=== PATIENT | female | born 1995 | race Caucasian/White ===

== ENCOUNTER 2023-10-22 09:45 | Emergency (ER) | payer OTHER ==
[2023-10-22 10:06] VITALS: O2SAT 100
[2023-10-22 10:12] LABS: BASOPHILS % (AUTO) 0.4 %; EOSINOPHILS # (AUTO) 0.1 10^3/uL (0.0-0.7); EOSINOPHILS % (AUTO) 1.6 %; HCT - HEMATOCRIT 42.7 % (37.0-47.0); HGB - HEMOGLOBIN 14.1 g/dL (12.0-16.0); LYMPHOCYTES # (AUTO) 1.3 10^3/uL (1.5-3.5); LYMPHOCYTES % (AUTO) 17.7 %; MEAN CORPUSCULAR HEMOGLOBIN 32.7 pg (27.0-31.0); MEAN CORPUSCULAR VOLUME 99.1 fL (81.0-99.0); MEAN PLATELET VOLUME 11.3 fL (7.9-10.8); MONOCYTES # (AUTO) 0.6 10^3/uL (0.0-1.0); MONOCYTES % (AUTO) 8.4 %; NEUTROPHILS # (AUTO) 5.3 10^3/uL (1.5-6.6); NEUTROPHILS % (AUTO) 71.6 %; PLT - PLATELET COUNT 171 10^3/uL (130-450); RED BLOOD COUNT 4.31 10^6/uL (4.20-5.40); RED CELL DISTRIBUTION WIDTH 12.6 % (12.0-15.0); WHITE BLOOD COUNT 7.4 x10^3/uL (4.8-10.8)
[2023-10-22 10:36] LABS: ALBUMIN 4.3 g/dL (3.2-5.5); ALBUMIN/GLOBULIN RATIO 1.5 (1.0-2.2); BILIRUBIN,TOTAL 0.2 mg/dL (0.2-1.0); CALCIUM 9.1 mg/dL (8.5-10.3); CREATININE 0.7 mg/dL (0.6-1.3); POTASSIUM 4.2 mmol/L (3.5-4.5); TOTAL PROTEIN 7.2 g/dL (6.4-8.9)
[2023-10-22] MEDS ORDERED: KETOROLAC 30 MG/ML VIAL IVP STA (11:29)
[2023-10-22] MEDS ORDERED: SODIUM CHLORIDE 0.9% 1,000 ML IV STA (11:29)
[2023-10-22 11:38] LABS: B. PARAPERTUSSIS- RESP PCR PAN NOT DETECTED; B. PERTUSSIS- RESP PCR PANEL NOT DETECTED; C. PNEUMONIAE- RESP PCR PANEL NOT DETECTED; CORONAVIRUS 229E-RESP PCR NOT DETECTED; CORONAVIRUS HKU1-RESP PCR NOT DETECTED; CORONAVIRUS NL63-RESP PCR NOT DETECTED; CORONAVIRUS OC43-RESP PCR NOT DETECTED; HUMAN METAPNEUMOVIRUS NOT DETECTED; INFLUENZA A- RESP PCR PANEL NOT DETECTED; INFLUENZA B - RESP PCR PANEL NOT DETECTED; M. PNEUMONIAE- RESP PCR PANEL NOT DETECTED; PARAINFLUENZA VIRUS 1 NOT DETECTED; PARAINFLUENZA VIRUS 2 NOT DETECTED; PARAINFLUENZA VIRUS 3 NOT DETECTED; PARAINFLUENZA VIRUS 4 NOT DETECTED; RHINOVIRUS/ENTEROVIRUS DETECTED; RSV- RESP PCR PANEL NOT DETECTED; SARS-CoV-2 -RESP PCR PANEL NOT DETECTED
[2023-10-22 11:50] LABS: HCG UR QUAL NEGATIVE
[2023-10-22 11:57] LABS: BILIRUBIN,URINE NEGATIVE (NEGATIVE); GLUCOSE, URINE (UA) NEGATIVE (NEGATIVE); KETONES,URINE (UA) NEGATIVE (NEGATIVE); LEUKOCYTE ESTERASE, URINE NEGATIVE (NEGATIVE); NITRITE,URINE NEGATIVE (NEGATIVE); OCCULT BLOOD,URINE TRACE-INTA (NEGATIVE); PH,URINE 5.5 PH (5.0-7.5); PROTEIN,URINE NEGATIVE (NEGATIVE); UROBILINOGEN,URINE 0.2 (NORMAL) E.U./dL (NORMAL)
[2023-10-22 12:01] LABS: CLARITY,URINE CLOUDY (CLEAR)
[2023-10-22 12:19] LABS: AMORPHOUS SEDIMENT,UR Moderate /LPF; BACTERIA,URINE Few /HPF (None Seen); RBC,URINE 0-5 /HPF (0-5); SQUAMOUS EPITHELIAL CELL,UR MOD Squamous (<= Few)
--- NOTE | 2023-10-22 12:30 | ED Physician Documentation ---
PD HPI ABD PAIN - Stated complaint Stated Complaint: STOMACH PX, GAR[place] - Chief complaint Chief Complaint: Abd Pain - History obtained from History obtained from: Patient - Additional information Additional information: Patient is a 28 yo F with 1 day history of abdominal pain with loose watery stools. No blood. Reported fever on Wednesday of 101 and yesterday having gassy upper abdominal pain with multiple stools overnight. No vomiting. No CP, cough, SOA. has similar symptoms. Denies concerns for . No recent antibiotic use or travel for patient. Review of Systems Constitutional: reports: Fever Cardiac: denies: Chest pain / pressure Respiratory: denies: Dyspnea GI: reports: Abdominal Pain, Diarrhea. denies: Nausea, Bloody / black stool : reports: Dysuria PD PAST MEDICAL HISTORY - Past Medical History Past Medical History: No - Past Surgical History Past Surgical History: No - Allergies Allergies/Adverse Reactions: Allergies Allergy/AdvReac Type Severity Reaction Status Date / Time No Known Drug Allergies Allergy Verified 10/22/23 09:57 - Social History Does the pt smoke?: No Smoking Status: Never smoker PD ED PE NORMAL - General General: Alert and oriented X 3, No acute distress, Well developed/nourished - HEENT HEENT: Atraumatic, Moist mucous membranes, Pharynx benign - Neck Neck: Supple, no meningeal sign - Cardiac Cardiac: RRR, No murmur, Strong equal pulses - Respiratory Respiratory: No respiratory distress, Clear bilaterally - Abdomen Abdomen: Normal bowel sounds, Soft, Non tender, Non distended - Derm Derm: Warm and dry - Neuro Neuro: Normal speech Results - Vitals Vitals: Vital Signs - 24 hr 10/22/23 10/22/23 10/22/23 09:54 11:57 13:00 Temperature 36.7 C 36.7 C 36.5 C Heart Rate 62 60 60 Respiratory 15 16 16 Rate Blood Pressure 143/83 H 138/80 H 130/86 H O2 Saturation 100 100 100 Oxygen O2 Source Room air - Labs Labs: Laboratory Tests 10/22/23 10/22/23 10/22/23 10:00 10:00 10:03 WBC RBC Hgb Hct MCV MCH MCHC RDW Plt Count MPV Neut # (Auto) Lymph # (Auto) [place] # (Auto) Eos # (Auto) Baso # (Auto) Absolute Nucleated RBC Nucleated RBC % Sodium Potassium Chloride Carbon Dioxide Anion Gap BUN Creatinine Estimated GFR (MDRD) Glucose Calcium Total Bilirubin AST ALT Alkaline Phosphatase Total Protein Albumin Globulin Albumin/Globulin Ratio Lipase Urine Color YELLOW Urine Clarity CLOUDY Urine pH 5.5 Ur Specific [place] 1.025 Urine Protein NEGATIVE Urine Glucose (UA) NEGATIVE Urine Ketones NEGATIVE Urine Occult Blood TRACE-INTA Urine Nitrite NEGATIVE Urine Bilirubin NEGATIVE Urine Urobilinogen 0.2 (NORMAL) Ur Leukocyte Esterase NEGATIVE Urine RBC 0-5 Urine WBC 4-5 Ur Squamous Epith Cells MOD Squamous H Amorphous Sediment Moderate Urine Bacteria Few Ur Microscopic Review INDICATED Urine Culture Comments NOT INDICATED Urine HCG, Qual NEGATIVE Nasal Adenovirus (PCR) NOT DETECTED Nasal B. parapertussis DNA (PCR) NOT DETECTED Nasal Coronavir 229E PCR NOT DETECTED Nasal Coronavir HKU1 PCR NOT DETECTED Nasal Coronavir NL63 PCR NOT DETECTED Nasal Coronavir OC43 PCR NOT DETECTED Nasal Enterovir/Rhinovir PCR DETECTED A Nasal Influenza B PCR NOT DETECTED Nasal Influenza A PCR NOT DETECTED Nasal Parainfluen 1 PCR NOT DETECTED Nasal Parainfluen 2 PCR NOT DETECTED Nasal Parainfluen 3 PCR NOT DETECTED Nasal Parainfluen 4 PCR NOT DETECTED Nasal RSV (PCR) NOT DETECTED Nasal B.pertussis DNA PCR NOT DETECTED Nasal C.pneumoniae (PCR) NOT DETECTED Sami Human Metapneumo PCR NOT DETECTED Nasal M.pneumoniae (PCR) NOT DETECTED Nasal SARS-CoV-2 (PCR) NOT DETECTED 10/22/23 10/22/23 10:07 10:07 WBC 7.4 RBC 4.31 Hgb 14.1 Hct 42.7 MCV 99.1 H MCH 32.7 H MCHC 33.0 RDW 12.6 Plt Count 171 MPV 11.3 H Neut # (Auto) 5.3 Lymph # (Auto) 1.3 L [place] # (Auto) 0.6 Eos # (Auto) 0.1 Baso # (Auto) 0.0 Absolute Nucleated RBC 0.00 Nucleated RBC % 0.0 Sodium 137 Potassium 4.2 Chloride 106 Carbon Dioxide 26 Anion Gap 5.0 L BUN 12 Creatinine 0.7 Estimated GFR (MDRD) 100 Glucose 76 Calcium 9.1 Total Bilirubin 0.2 AST 24 ALT 18 Alkaline Phosphatase 80 Total Protein 7.2 Albumin 4.3 Globulin 2.9 Albumin/Globulin Ratio 1.5 Lipase 22 Urine Color Urine Clarity Urine pH Ur Specific [place] Urine Protein Urine Glucose (UA) Urine Ketones Urine Occult Blood Urine Nitrite Urine Bilirubin Urine Urobilinogen Ur Leukocyte Esterase Urine RBC Urine WBC Ur Squamous Epith Cells Amorphous Sediment Urine Bacteria Ur Microscopic Review Urine Culture Comments Urine HCG, Qual Nasal Adenovirus (PCR) Nasal B. parapertussis DNA (PCR) Nasal Coronavir 229E PCR Nasal Coronavir HKU1 PCR Nasal Coronavir NL63 PCR Nasal Coronavir OC43 PCR Nasal Enterovir/Rhinovir PCR Nasal Influenza B PCR Nasal Influenza A PCR Nasal Parainfluen 1 PCR Nasal Parainfluen 2 PCR Nasal Parainfluen 3 PCR Nasal Parainfluen 4 PCR Nasal RSV (PCR) Nasal B.pertussis DNA PCR Nasal C.pneumoniae (PCR) Sami Human Metapneumo PCR Nasal M.pneumoniae (PCR) Nasal SARS-CoV-2 (PCR) PD Medical Decision Making - ED course Complexity details: reviewed results, re-evaluated patient, d/w patient ED course: Pt with watery stools overnight and gassy abdominal pain. Afebrile here but did have fever earlier in the week. ABdominal exam benign. CBC, chemistries, UA, hcg reviewed and without significant findings. Pt unable to give a stool sample here. Pt feeling better with IV fluids and toradol. Respiratory swab + for enterovirus/rhinovirus. Pt counseled on continued supportive care as well as concerning symptoms to return for. Departure - Departure Disposition: 01 Home, Self Care Clinical Impression: Diarrhea, Enterovirus infection Condition: Stable Instructions: ED Diet Vomiting Diarrhea Comments: Please continue with staying hydrated and I would start with a bland diet. Your labs are overall reassuring. You have tested positive for enterovirus/rhinovirus Which is likely the explanation for your symptoms. However if it anytime you develop any worsening symptoms such as increased abdominal pain, vomiting, continued diarrhea or have any other concerns please return to the emergency department. Forms: PCP List, Activity restrictions Discharge Date/Time: 10/22/23 13:16
[2023-10-22 13:17] VITALS: BP 130/86
== END 2023-10-22 13:16 | disposition home or self-care (01) ==
LOC: ED 09:45
DX: B34.1 Enterovirus infection, unspecified (principal); R19.7 Diarrhea, unspecified; Z11.52 Encounter for screening for COVID-19
CPT/HCPCS: 36415; 80053; 81001; 81003; 81025; 83690; 85025; 87086; 87633; 96374; 99284

== ENCOUNTER 2025-08-02 15:01 | Observation (INO) ==
[2025-08-02] MEDS ORDERED: SODIUM CHLORIDE FLUSH 0.9% 10 ML SYRINGE IVP PRN (16:21)
[2025-08-02] MEDS ORDERED: ONDANSETRON ODT 4 MG TABLET TL PRN (16:21)
[2025-08-02] MEDS: ACETAMINOPHEN 325 MG TABLET PO PRN (16:39)
--- NOTE | 2025-08-02 23:18 | HISTORY & PHYSICAL EXAMINATION ---
Admit History Visit Reason Visit Reason: Other (Elevated bp) : 1 Care: positive [facility] Complications This : positive induced HTN Smoking Status: Never smoker Other Maternal History Other Maternal History: presents with very elevated bps at home. Did not feel well so started checking. 07/31 150/99 15 140/86 before meds 146/90 in pm 08/02 151/95 at 2 am, 155/99, 174/99 went to [facility] and given 200 mg labetolol adn 120/78 10:45 148/98, 153/93, 147/96 200 mg more labetolol and then 139/90, 142/90. somewhat of a headache. otherwise feels pretty well. in [place] and then goes to [place] on deployment. She was going to visit him in 2 weeks. Mom coming up from [facility] to be with her daughter. Admitted this evening to collect 24 hr urine and to watch for severe range bps to make a proper diagnosis off medication. Specific Issues/Plans In the event of an emergency, DOES ACCEPT the administration of blood products : SAB October 2024 G2: Current FOB: Robby Donnelly - Active Duty [place] Deploying July to January. Should be able to come home for her delivery for 2 weeks. 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 Denies current use of alcohol or tobacco, marijuana or other recreational drugs. Reports that she is safe in current relationship. Family Hx:Denies family history of congenital anomalies, Cystic Fibrosis or chromosomal abnormalities Allergies:NKA Medications: PNV, Magnesium, LDASA @ 12 weeks -nulliparous, increased BMI It's a GIRL! Magdalena LMP:01/07/2025 SIRI by LMP: 10/14/2025 U/S: @ 7+2 weeks gestation Final SIRI: 10/14/2025 Pre- weight: 202 BMI: 30.9 Blood type: O+ Antibody screen: Negative CBC: PLT HCT HGB - Not enough of a sample at initial draw. Okay to just repeat in third trimester or sooner if symptoms arrise rubella: Immune VZV: Immune HBsAg: Negative HepC: NR RPR/AB-EIA: NR HIV: NR Flu: COVID: PAP: GC/CT: 03/22/2025 Negative HSV: denies Genetic screening: NIPT- negative AFP: ordered FAS: ordered Placenta: Cord: GAEL: EFW: 50gm GCT: 3 hr GTT: TDAP: Breast Pump: 07/09/2025 3rd trimester H/H PLT 3rd trimester RPR RSV: GBS: EPDS: Delivery plan: contraception OB Visit Log Initial Weight: 202 lb 6.4 oz Date EGA Weight BP Fundal ht Pres HR Movement CTX Edema Cerv Dil Cerv Eff % Sta 03/22/25 10w 4d 204 lb(+1 lb 9.6 oz) 130/72 159 04/17/25 14w 2d 209 lb(+6 lb 9.6 oz) 130/76 166 absent absent absent 05/15/25 18w 2d 216 lb(+13 lb 9.6 oz) 136/78 133 active absent absent 06/01/25 20w 5d 07/09/25 26w 1d 228 lb(+25 lb 9.6 oz) 124/80 26 vtx 145 ac tive absent absent HPI Diagnosis/Indication for NST: Gestational Hypertension Current : Vital Signs Temperature 36.7 C 08/02/25 15:15 Pulse Rate 74 08/02/25 22:29 Respiratory Rate 16 08/02/25 22:29 Blood Pressure 133/86 H 08/02/25 22:29 O2 Saturation 100 08/02/25 22:29 NST Procedure NST Procedure: for of less than 32 weeks gestation. NST tracing contains at least two heart rate accelerations that are at least 10 beats per minute above the baseline rate and lasting at least 10 seconds from onset to return to baseline within a twenty minute period. Results and Plan Findings/Impression: NST is reactive for her gestational age. Plan: admit for observation Meds/Allgy Home Medications Ambulatory Orders Medication Instructions Recorded Confirmed vits no.126-ferrous fum tab PO QDAY 10/09/24 07/09/25 28 mg iron-folic acid 800 mcg tablet (Classic ) aspirin 81 mg tablet,delayed 81 mg PO QDAY 05/15/25 release (Adult Aspirin Regimen) magnesium PO 05/15/25 07/09/25 omeprazole magnesium [Prilosec OTC] PO 07/09/25 labetalol 100 mg tablet 100 mg PO BID #60 tabs 08/01 Allergies Allergies Allergy/AdvReac Type Severity Reaction Status Date / Time No Known Drug Allergies Allergy Verified 07/09/25 09:58 PFSH Active Problems All Active Problems (Updated 08/02/25 @ 23:30 by Krystle Barbour MD) 29 weeks gestation of (Acute) Gestational hypertension without significant proteinuria during in third trimester, antepartum (Acute 08/01/25) Hepatic steatosis (Acute) Gallbladder anomaly (Acute) Medical History Medical History (Updated 08/02/25 @ 23:30 by Krystle Barbour MD) Hyperlipidemia Family history of thyroid disease Social History Social History (Updated 07/09/25 @ 13:24 by Alexandra Montero [facility]) Smoking Status: Never smoker Second hand tobacco smoke exposure: No Do you dip or chew tobacco?: No Do you vape?: No Living arrangement: At home Living Condition: With spouse/s.o. 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 no n/v. overall feels pretty well. walking in halls. Physical Abdominal Exam Vital Signs: Temp Pulse Resp BP Pulse Ox 36.7 C 74 16 133/86 H 100 08/02/25 15:15 08/02/25 22:29 08/02/25 22:29 08/02/25 22:29 08/02/25 22:29 Contraction Frequency (min/apart): none Uterine Resting Tone: positive Soft Plan for Labor Plan For Labor I expect patient to be DC'd or transferred within 96 hours.: Yes Plan for Labor: hopefully she will be able to go home late tomorrow or Wednesday after full assessment of where her bps are and her 24 hr urine. Conclusion/Plan Problem List (1) Gestational hypertension without significant proteinuria during in third trimester, antepartum: (2) 29 weeks gestation of : Plan Observe bps for 24 hrs or so. collect 24 hour urine started at 7 pm. watch for severe range bps. NST bid. If bps are in severe range, will consult MFM and possibly transfer. If no severe range bps will restart on labetolol and send home. Lab Results Lab results reviewed: Yes Other Lab Results: labs were done early this am and ok. will repeat tomorrow am. last US 06/04 so will order for am to check for growth restriction.
[2025-08-02] MEDS: CALCIUM CARBONATE CHEW 500 MG TABLET PO SCH (23:55)
[2025-08-03] MEDS: SODIUM CHLORIDE FLUSH 0.9% 10 ML SYRINGE IVP SCH (01:13)
[2025-08-03 07:29] LABS: HCT - HEMATOCRIT 40.0 % (37.0-47.0); HGB - HEMOGLOBIN 13.5 g/dL (12.0-16.0); MEAN PLATELET VOLUME 12.6 fL (7.9-10.8); PLT - PLATELET COUNT 155.0 10^3/uL (130-450); RED CELL DISTRIBUTION WIDTH 12.7 % (12.0-15.0)
[2025-08-03 07:42] LABS: ALT ALANINE AMINOTRANSFERASE 13.0 IU/L (10-60); AST ASPARTATE AMINOTRANSFERASE 15.0 IU/L (10-42); BUN - BLOOD UREA NITROGEN 7.0 mg/dL (6-20); CARBON DIOXIDE - CO2 24.0 mmol/L (21-32); CREATININE 0.5 mg/dL (0.6-1.3); GFR - MDRD 146.0 (>89)
--- NOTE | 2025-08-03 09:12 | PROVIDER PROGRESS NOTE ---
HPI Current : Vital Signs Temperature 97.9 F 08/03/25 07:25 Pulse Rate 72 08/03/25 07:25 Respiratory Rate 16 08/03/25 07:25 Blood Pressure 131/90 H 08/03/25 07:25 O2 Saturation 98 08/03/25 07:25 Procedures Service Date of procedure: 08/02/25 Plan Plan: Date of encounter: 08/02/2025 Time of encounter: 0322 am S: Bessie presents to [facility] with c/o elevated home blood pressure 150/95 and worsening headache. She reports headache is 5/10 on a pain scale. She denies visual disturbances, RUQ or epigastric pain. She denies vaginal bleeding, leakage of fluid or contractions. She reports +FM. O: NST reactive: FHR baseline 130s, moderate variability, + accels, no decels No contractions appreciated via tocometry 200mg PO labetalol administered now 1000mg PO tylenol administered now -Headache resolved. Labs: Plt 141 (previously 153) Hgb/Hct 12.4/38.1 Creatinine 0.6 AST/ALT 15/14 Pro/cr ratio: 0.1 A: 29yo @ 29.3wks gestation Gestational hypertension in third trimester Thrombocytopenia, third trimester NST reactive P: Pt released home with precautions. Consultation with physician tomorrow morning. Reviewed warning s/sx and when to present. Pt verbalized understanding and agrees to above plan. She denies further questions or concerns at this time.
[2025-08-03 12:07] VITALS: TEMP 98.2; O2SAT 99
--- NOTE | 2025-08-03 13:38 | Discharge Summary ---
"Discharge Summary Admit Date: 08/02/25 Discharge Date: 08/03/25 Discharging Provider: Dr. Patti Talavera Primary Care Provider: BRIDGET [place], BRIDGET Montero Code Status: Attempt Resuscitation Discharge Facility [facility]: [facility] DIAGNOSES Admission Diagnoses: Gestational hypertension, third trimester Discharge Diagnoses with Status of Each Condition: Same, stable gestational HTN without evidence of severe features HPI History of Present Illness: Patient is a 29 yo A1 admitted at 29+4 wks for inpatient BP monitoring and 24 hr urine protein collection. Admission was recommended after home pressures have been newly elevated this week. BP's outside of and prior to 20 wks were normal. She purchased a home cuff and has been checking because she had a couple 130/80s at clinic visits and was worried. After triage visits noted moderate HTN, a trial of labetalol PO was minimally effective at improving her pressures. With this new development of HTN, recommendation was for inpatient monitoring off meds to see if meeting diagnostic criteria for severe features. She's had intermittent, mild headaches that resolve with Tylenol and has had no other sx of preE. Hx and home BP readings: 07/31 150/99 10 140/86 before meds 146/90 in pm 08/02 151/95 at 2 am, 155/99, 174/99 went to [facility] and given 200 mg labetolol and 120/78 10:45 148/98, 153/93, 147/96 200 mg more labetolol and then 139/90, 142/90. 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 Denies current use of alcohol or tobacco, marijuana or other recreational drugs. Reports that she is safe in current relationship. Family Hx:Denies family history of congenital anomalies, Cystic Fibrosis or chromosomal abnormalities Allergies:NKA Medications: PNV, Magnesium, LDASA @ 12 weeks -nulliparous, increased BMI It's a GIRL! Magdalena LMP:01/07/2025 SIRI by LMP: 10/14/2025 U/S: @ 7+2 weeks gestation Final SRII: 10/14/2025 Pre- weight: 202 BMI: 30.9 Blood type: O+ Antibody screen: Negative CBC: PLT HCT HGB - Not enough of a sample at initial draw. Okay to just repeat in third trimester or sooner if symptoms arrise rubella: Immune VZV: Immune HBsAg: Negative HepC: NR RPR/AB-EIA: NR HIV: NR Flu: COVID: PAP: GC/CT: 03/22/2025 Negative HSV: denies Genetic screening: NIPT- negative AFP: ordered FAS: ordered Placenta: Cord: GAEL: EFW: 50gm GCT: 3 hr GTT: TDAP: Breast Pump: 07/09/2025 3rd trimester H/H PLT 3rd trimester RPR RSV: GBS: EPDS: Delivery plan: contraception CONSULTS | PROCEDURES Consultations: None Procedures: monitoring, serial blood pressures HOSPITAL COURSE Hospital Course: Patient was admitted for serial blood pressures, collection of 24 hr urine for protein, and intermittent monitoring. Serum preE labs on 08/02 and 08/03 were wnl. Serial BP's nearly all mildly elevated with 2 outliers into moderately elevated levels (115-153/70-98). She had no severe-range BP elevations during her hospital stay, and she did not develop sx of severe preE (intractable headache, visual changes, upper/right abdominal pain). monitoring was reassuring with no ctx or evidence of PTL. During her stay, her labs did note low-normal B12. She has PO supplement at home but has not been taking. She was given a dose of 1000 mg IM prior to discharge. Dx: Gestational HTN, third trimester. Plan to discharge home at this time, completing 24 hr urine collection at home. - Return 24 hr UTP to lab tomorrow morning - Recommend no antihypertensive medication at this time (in order to avoid masking severe features if developing) - Start outpatient NSTs twice weekly with once weekly preE labs. - Cont home BP monitoring, and call/return to L&D for sx of preE ([place], visual changes, abdominal pain), and/or persistent severe-range BP elevation (160/110). - Discussed that if she meets criteria for preE with severe features, we would start mag sulfate, antihypertensive medication, and plan for transfer to a larger hospital if still . If undelivered , discussed that she will likely be induced at or shortly after 37 wks. - Patient was planning travel to [place] to visit with spouse. Advised against this and provided letter to airline to support refunding or crediting her flight. 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 Discussed that she is OK to continue working at this time. ALLERGIES Allergies Allergy/AdvReac Type Severity Reaction Status Date / Time No Known Drug Allergies Allergy Verified 07/09/25 09:58 MEDICATIONS Ambulatory Orders Medication Instructions Recorded Confirmed vits no.126-ferrous fum tab PO QDAY 10/09/24 07/09/25 28 mg iron-folic acid 800 mcg tablet (Classic ) aspirin 81 mg tablet,delayed 81 mg PO QDAY 05/15/25 release (Adult Aspirin Regimen) magnesium PO 05/15/25 07/09/25 omeprazole magnesium [Prilosec OTC] PO 07/09/25 labetalol 100 mg tablet 100 mg PO BID #60 tabs 08/01 Held on 08/03/25. Instructions: Resume on 09/16/25. Hold until instructed by physician to restart PHYSICAL EXAM AT DISCHARGE Vital Signs: Vital Signs x48h Temp Pulse Resp BP Pulse Ox 08/03/25 12:00 74 137/87 H 08/03/25 11:50 36.8 C 72 20 134/98 H 99 08/03/25 09:30 74 124/83 08/03/25 08:30 75 125/84 08/03/25 07:25 36.6 C 72 16 131/90 H 98 General Appearance: positive No acute distress and Alert Respiratory: positive No respiratory distress and Breath sounds nml Cardiovascular: positive Regular rate & rhythm Abdomen: positive Non-tender and Other (Gravid) Skin: positive Color nml Extremities: positive Nml appearance Neurologic/Psychiatric: positive Oriented x3 and Mood/affect nml LABS 08/03/25 07:13 08/03/25 07:13 Other Lab Results: B12 200 ALT/AST normal Spot urine prot/cr: 0.1 24 hr UTP in progress QUALITY (Female Hip Fx Only) Was patient sent home on osteoporosis medication?: No FOLLOW UP Follow Up: 3 days in [facility] for NST and clinic visit TIME SPENT Time Spent in Discharge (Minutes): 25 Discharge Plan Discharge Patient Disposition: 01 Home, Self Care Condition: Stable Medically Cleared Date:: 08/03/25 Prescriptions: Continued omeprazole magnesium [Prilosec OTC] PO Classic 28 mg iron- 800 mcg tablet PO QDAY magnesium PO aspirin [Adult Aspirin Regimen] 81 mg tablet,delayed release (DR/EC) 81 mg PO QDAY Held labetalol 100 mg tablet 100 mg PO BID Qty: 60 2RF Hold Instructions: Resume on 09/16/25. Hold until instructed by physician to restart Diet: Regular Print Language: Indonesian Patient Instructions: Understanding Preeclampsia Follow-up Care: Katharina [place] CNM, [employer] [Primary Care Provider, Obstetrics/Gynecology] Vitals documented within 30 minutes of discharge?: Yes"
[2025-08-03 14:05] VITALS: BP 133/83
[2025-08-03] MEDS: CYANOCOBALAMIN 1,000 MCG/ML VIAL IM ONE (14:05)
== END 2025-08-03 14:30 | disposition home or self-care (01) ==
LOC: FBP 15:01 → WFO 15:01 → FBP 15:03
PROVIDERS: ADMIT Obstetrics & Gynecology; ATTEND Obstetrics & Gynecology
DX: Z34.93 Encounter for supervision of normal pregnancy, unspecified, third trimester; O13.3 Gestational [pregnancy-induced] hypertension without significant proteinuria, third trimester; Z3A.29 29 weeks gestation of pregnancy; D69.6 Thrombocytopenia, unspecified; O99.113 Other diseases of the blood and blood-forming organs and certain disorders involving the immune mechanism complicating pregnancy, third trimester

== ENCOUNTER 2025-08-29 12:35 | Observation (INO) ==
[2025-08-29 13:46] LABS: HCT - HEMATOCRIT 37.0 % (37.0-47.0); HGB - HEMOGLOBIN 12.6 g/dL (12.0-16.0); MEAN PLATELET VOLUME 13.4 fL (7.9-10.8); PLT - PLATELET COUNT 151.0 10^3/uL (130-450); RED CELL DISTRIBUTION WIDTH 13.2 % (12.0-15.0)
[2025-08-29 13:51] LABS: ALT ALANINE AMINOTRANSFERASE 14.0 IU/L (10-60); AST ASPARTATE AMINOTRANSFERASE 20.0 IU/L (10-42); BUN - BLOOD UREA NITROGEN 11.0 mg/dL (6-20); CARBON DIOXIDE - CO2 22.0 mmol/L (21-32); CREATININE 0.6 mg/dL (0.6-1.3); GFR - MDRD 118.0 (>89)
[2025-08-29 14:01] VITALS: TEMP 98.2
[2025-08-29 14:04] LABS: TOTAL PROTEIN,URINE TIMED 110.0 mg/dL
[2025-08-29] MEDS: LABETALOL 100 MG TABLET PO ONE (15:03)
[2025-08-29] MEDS ORDERED: SODIUM CHLORIDE FLUSH 0.9% 10 ML SYRINGE IVP PRN (15:42)
[2025-08-29] MEDS ORDERED: hydrALAZINE INJ 20 MG/ML VIAL IVP PRN ×2 (15:42)
[2025-08-29] MEDS ORDERED: LABETALOL 20 MG/4 ML SYRINGE IVP PRN (15:42)
[2025-08-29] MEDS: LABETALOL 20 MG/4 ML SYRINGE IVP ONE (15:45)
[2025-08-29] MEDS ORDERED: LACTATED RINGERS 1,000 ML IV SCH (16:00)
[2025-08-29] MEDS: MAGNESIUM SULFATE 4 GRAM 4 GM/50 ML BAG IV ONE (16:04)
[2025-08-29] MEDS: BETAMETHASONE 30 MG/5 ML VIAL IM ONE (16:05)
[2025-08-29] MEDS: MAGNESIUM SULFATE IN WATER 20 GM/500 ML IV.SOLN IV SCH (16:32)
--- NOTE | 2025-08-29 17:20 | HISTORY & PHYSICAL EXAMINATION ---
Admit History Visit Reason Visit Reason: Other (Told to come for eval by [facility] due to urine protein of 0.9 on MTP. ) : 2 Parity: 0 Care: positive [facility] Risk/History: positive induced HTN (BP elevations starting at 29 weeks. Started on labetolol at 30 weeks. Increasing doses to 300 mg tid. Consult with 32 weeks. first lab abnormalities 08/28/25. ) Smoking Status: Never smoker Mother's Labs GBS: positive Other (not done yet. ) Rubella Status: positive Immune Other Maternal History Other Maternal History: Expected Delivery Route/Plan Anticipate Specific Issues/Plans In the event of an emergency, DOES ACCEPT the administration of blood products : SAB October 2024 G2: Current FOB: Robby Donnelly - [employer]ployed July. Back in town now for delivery. Consults: Gestational httn dx 08/01/2025. observed overnight with BPs ok. NST twice weekly. growth scan monthly. watch for severe range pressures. 24 hr urine protein TNP labetolol 200 mg TID. referral to [facility]. labetolol increased to 300 mg tid. getting bps messaged to them. 08/29 recommend increase to 400 mg tid but patient has not taken that dose yet. 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 Denies current use of alcohol or tobacco, marijuana or other recreational drugs. Reports that she is safe in current relationship. Family Hx:Denies family history of congenital anomalies, Cystic Fibrosis or chromosomal abnormalities Allergies:NKA Medications: PNV, Magnesium, B12, LDASA @ 12 weeks -nulliparous, increased BMI It's a GIRL! Magdalena LMP:01/07/2025 SIRI by LMP: 10/14/2025 U/S: @ 7+2 weeks gestation Final SIRI: 10/14/2025 Pre- weight: 202 BMI: 30.9 Blood type: O+ Antibody screen: Negative CBC: PLT HCT HGB - 155/13.5/40 MCV 99. b12 low, started replacement. rubella: Immune VZV: Immune HBsAg: Negative HepC: NR RPR/AB-EIA: NR HIV: NR Flu: 08/06/25 given COVID: declined vaccine PAP: GC/CT: 03/22/2025 Negative HSV: denies Genetic screening: NIPT- negative AFP: ordered FAS: 06/04/2025 Placenta: Anterior Cord: 3VC GAEL: 15.9 EFW: 401g 50gm GCT: 91 3 hr GTT: TDAP:08/06/25 Breast Pump: 07/09/2025 3rd trimester 13.6/ 40.6/ 153 3rd trimester RPR NR RSV: 08/20/25 given GBS: not collected yet. EPDS: Delivery plan: contraception OB Visit Log Initial Weight: 202 lb 6.4 oz Date EGA Weight BP Fundal ht Pres HR Movement CTX Edema Cerv Dil Cerv Eff % Sta 03/22/25 10w 4d 204 lb(+1 lb 9.6 oz) 130/72 159 04/17/25 14w 2d 209 lb(+6 lb 9.6 oz) 130/76 166 absent absent absent 05/15/25 18w 2d 216 lb(+13 lb 9.6 oz) 136/78 133 active absent absent 06/01/25 20w 5d 07/09/25 26w 1d 228 lb(+25 lb 9.6 oz) 124/80 26 vtx 145 ac tive absent absent 08/06/25 30w 1d 235 lb(+32 lb 9.6 oz) 141/90 active a bsent absent 08/16/25 31w 4d 237 lb 8 oz(+35 lb 1.6 oz) 135/90 08/20/25 32w 1d 241 lb(+38 lb 9.6 oz) 138/85 active absent 1+ Notes Visit Date: 08/20/25 Last Updated by: Krystle Barbour MD reactive nst today. feeling much better on labetolol 200 mg tid and feels bps are stable. Happy. labs next on . did talk with mfm. a bit more swollen. occipital area headache, not terrible but different. no visual issues. RSV vaccine given today. plan for delivery based on how she does and recommendations. HPI Diagnosis/Indication for NST: Gestational Hypertension Current : Vital Signs Temperature 36.8 C 08/29/25 13:46 Pulse Rate 63 08/29/25 16:39 Respiratory Rate 16 08/29/25 15:35 Blood Pressure 132/81 H 08/29/25 16:39 NST Procedure NST Procedure: Reactive for of 32 weeks gestation or more. NST tracing contains at least two heart rate accelerations that are at least 15 beats per minute above the baseline rate and lasting at least 15 seconds from onset to return to baseline within a twenty minute period. Results and Plan Findings/Impression: Reactive NST Plan: transfer patient to higher level of care Meds/Allgy Home Medications Ambulatory Orders Medication Instructions Recorded Confirmed vits no.126-ferrous fum 1 tab PO DAILY 08/29/25 28 mg iron-folic acid 800 mcg tablet (Classic ) aspirin 81 mg tablet,delayed 81 mg PO DAILY 05/15/25 1 10/29/24 release (Adult Aspirin Regimen) labetalol 100 mg tablet 300 mg PO TID 08/23/2508/29 Allergies Allergies Allergy/AdvReac Type Severity Reaction Status Date / Time No Known Drug Allergies Allergy Verified 08/28/25 10:05 PFSH Active Problems All Active Problems (Updated 08/29/25 @ 17:37 by Krystle Barbour MD) Severe preeclampsia (Acute) B12 deficiency (Acute) Hepatic steatosis (Acute) Gallbladder anomaly (Acute) Medical History Medical History (Updated 08/29/25 @ 17:37 by Krystle Barbour MD) Hyperlipidemia Family history of thyroid disease Social History Social History (Updated 07/09/25 @ 13:24 by KAYY Ceballos) Smoking Status: Never smoker Second hand tobacco smoke exposure: No Do you dip or chew tobacco?: No Do you vape?: No Living arrangement: At home Living Condition: With spouse/s.o. 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 normal occipital mild headache, pretty much since starting labetolol. 2+ LE edema wearing support socks. baby moving well. Physical Abdominal Exam Vital Signs: Temp Pulse Resp BP 36.8 C 63 16 132/81 H 08/29/25 13:46 08/29/25 16:39 08/29/25 15:35 08/29/25 16:39 appears well. 2+ edema in lower legs. Her face is not swollen. Contraction Frequency (min/apart): none Uterine Resting Tone: positive Soft Monitoring Strip Review: positive Category I Presentation Presentation: positive Vertex (confirmed by US today) Vaginal Exam Dilation (in cm): deferred Speculum Exam Speculum Exam Performed: positive No Plan for Labor Plan For Labor I expect patient to be DC'd or transferred within 96 hours.: Yes Plan for Labor: transfer care to [facility]. Accepted by Leigh Olmos DO. Conclusion/Plan Problem List (1) Severe preeclampsia: Plan: Severe range bps up to 175/99. Labetolol 300 mg oral, her normal midday dose was given. minimal decrease so 20 mg IV was given about 1600. Magnesium 4 gram load and 2 gram per hour started for seizure prophylaxis. Betamethasone 12 mg im given. CAse discussed with Dr. Song at . they recommend above plan and transfer but do not have NICU availability. Arranged for care at [facility]. Accepting provider Leigh Olmos DO Qualifiers: Trimester: third trimester Qualified Code(s): O14.13 - Severe pre- eclampsia, third trimester Plan Transfer to [facility]. Discussed with Cecelia likely plan will be delivery at 34 weeks. Magnesium for at least 24 hrs. BP treatment as needed. 2nd dose of betamethasone tomorrow afternoon. Return to us for after care. Lab Results Lab results reviewed: Yes 08/29/25 13:22 08/29/25 13:22 Other Lab Results: urine protein creatinine ratio is 1.5. rest of CMP is normal for . AST 20.
--- NOTE | 2025-08-29 17:42 | Discharge Summary ---
"Discharge Summary Admit Date: 08/29/25 Discharge Date: 08/29/25 Discharging Provider: Krystle Barbour MD Code Status: Attempt Resuscitation DIAGNOSES Admission Diagnoses: Severe preeclampsia HPI History of Present Illness: Presents with elevated bps. Urine protein MTP now 0.9. CONSULTS | PROCEDURES Consultations: MAGALI Keisha by phone HOSPITAL COURSE Hospital Course: BP treated for labetolol 300 mg oral and then 20 mg iv. started on magnesium for seizure prophylaxis. betamethasone 12 mg given. Transfer arranged to [facility]. ALLERGIES Allergies Allergy/AdvReac Type Severity Reaction Status Date / Time No Known Drug Allergies Allergy Verified 08/28/25 10:05 MEDICATIONS Ambulatory Orders Medication Instructions Recorded Confirmed vits no.126-ferrous fum 1 tab PO DAILY 08/29/25 28 mg iron-folic acid 800 mcg tablet (Classic ) aspirin 81 mg tablet,delayed 81 mg PO DAILY 05/15/25 1 10/29/24 release (Adult Aspirin Regimen) labetalol 100 mg tablet 300 mg PO TID 08/23/2508/29 PHYSICAL EXAM AT DISCHARGE Vital Signs: Vital Signs x48h Temp Pulse Pulse Resp BP BP 08/29/25 16:39 63 132/81 H 08/29/25 15:45 65 168/93 H 08/29/25 15:35 61 16 168/93 H 08/29/25 15:06 59 L 170/92 H 08/29/25 14:51 65 175/99 H 08/29/25 14:37 60 156/96 H 08/29/25 14:14 62 160/92 H 08/29/25 13:46 36.8 C 62 16 157/93 H General Appearance: positive No acute distress and Alert Respiratory: positive No respiratory distress Cardiovascular: positive Regular rate & rhythm Abdomen: positive Non-tender Skin: positive Color nml and No rash Extremities: positive Non-tender and Pedal edema (into calves. 2+) Neurologic/Psychiatric: positive Oriented x3 and Mood/affect nml LABS 08/29/25 13:22 08/29/25 13:22 FOLLOW UP Follow Up: after delivery TIME SPENT Time Spent in Discharge (Minutes): 45 Discharge Plan Discharge Patient Disposition: 02 Transfer Acute Care Hosp Prescriptions: No Action labetalol 100 mg tablet 300 mg PO TID Classic 28 mg iron- 800 mcg tablet 1 tab PO DAILY aspirin [Adult Aspirin Regimen] 81 mg tablet,delayed release (DR/EC) 81 mg PO DAILY Diet: Regular Print Language: Kyrgyz Report called to and time (if no answer, doc. time of each call attempted): Dr. Olmos at 1500 08/29/25 Vitals documented within 30 minutes of discharge?: Yes"
[2025-08-29 17:49] VITALS: BP 126/78
== END 2025-08-29 18:15 | disposition short-term general hospital (02) ==
LOC: FBP 12:35 → WFO 12:35 → FBP 12:37
PROVIDERS: ADMIT Obstetrics & Gynecology; ATTEND Obstetrics & Gynecology
DX: O14.13 Severe pre-eclampsia, third trimester